=== PATIENT | male | born 1990 | race Caucasian/White ===

== ENCOUNTER 2016-11-24 23:48 | Emergency (ER) | payer BC ==
[~2016-11-24] VITALS: Ht 185.4 cm; Wt 97.5 kg
[2016-11-25 00:36] VITALS: BP 132/81
== END 2016-11-25 00:57 ==
LOC: ER 23:48
DX: F10.129 Alcohol abuse with intoxication, unspecified (principal)

== ENCOUNTER 2025-01-27 18:53 | Emergency (ER) | payer BC, MEDICAID ==
[~2025-01-27] VITALS: Ht 188 cm; Wt 100.0 kg
[2025-01-27 19:27] LABS: Hematocrit 48.2 % (41.0-53.0); Hemoglobin 17.3 g/dL (13.5-17.5); Mean Corpuscular Hemoglobin 35.1 pg (28.0-32.0); Mean Corpuscular Volume 98.0 fL (80.0-100.0); Nucleated Red Blood Cells % 0.1 %
[2025-01-27 19:43] LABS: Alkaline Phosphatase 76 U/L (46-116); Anion Gap 14 (5-15); BUN/Creatinine Ratio 6.8 (10.0-20.0); Calcium 9.4 mg/dL (8.7-10.4); Carbon Dioxide 23 mmol/L (20-31); Chloride 104 mmol/L (98-107); Glucose 95 mg/dL (74-106); Potassium 3.5 mmol/L (3.5-5.1); Sodium 141 mmol/L (136-145); Total Protein 7.8 g/dL (5.7-8.2)
[2025-01-27 19:44] LABS: Alanine Aminotransferase 60 U/L (7-40); Albumin 5.3 g/dL (3.2-4.8); Bilirubin, Total 0.4 mg/dL (0.2-1.0); Blood Urea Nitrogen 6 mg/dL (9-23); Lipase 81 U/L (12-53)
--- NOTE | 2025-01-27 19:56 | ED.PDOC ---
History of Present Illness HPI Comments 34-year-old male who presents to the emergency department with 3 days of left lower quadrant pain. He reports 3 years ago he was diagnosed with an internal hernia, told that he would need surgical repair. Patient does not have a PCP at this time, has not followed up with the surgeon. He states the pain is in the left upper quadrant, worse with food, associated with nausea and vomiting. He states he has difficulty having a bowel movement, it is not passing gas. Denies any significant past medical history. No blood in the vomit or stool. REVIEW OF SYSTEMS: General: No fever, no chills, or fatigue HEENT: No sore throat, no earache, no congestion, no neck pain. Cardiac: No chest pain. No palpitations. Lungs: No shortness of breath, no cough. GI: Positive nausea, positive vomiting, no diarrhea, positive constipation, positive abdominal pain : No dysuria, frequency, or urgency. No hematuria. Musculoskeletal: No joint pain , no joint swelling, no extremity edema. Skin: No rash, no itching. Neuro: No headache, no dizziness, no weakness PHYSICAL EXAM: General: Awake, alert and oriented. No acute distress. Skin: Skin in warm, dry and intact without rashes or lesions. HEENT: The head is normocephalic and atraumatic. Conjunctivae are clear without exudates or hemorrhage. Sclera is non-icteric. Neck: Normal range of motion. No JVD. Cardiac: Regular rate Respiratory: No signs of respiratory distress. No Stridor. Abdominal: Positive left upper quadrant tenderness. Diminished soft, no guarding rigidity or rebound Extremities: Upper and lower extremities are atraumatic in appearance without deformity. Neurological: The patient is awake, alert and oriented to person, place, and time with normal speech. Speech is clear. There is no facial asymmetry. Normal gait. Psychiatric: Appropriate mood and affect. Good judgement and insight. Chief Complaint: Abdominal Pain Time Seen by MD: 18:55 Primary Care Provider: DENIES Allergies: Coded Allergies: NO KNOWN ALLERGIES (Unverified , 10/25/09) Home Meds Active Scripts Acetaminophen (Acetaminophen Er) 650 Mg Tab, 650 MG PO TIDPRN PRN for 5 Days, #15 TAB Prov:JUANITA EATON MD 01/27/25 Ondansetron Odt 4MG Tab (ZOFRAN PO) 4 Mg Tb, 4 MG PO TIDPRN PRN for 3 Days, #9 TAB ODT TAB-DISSOLVE IN MOUTH, THEN SWALLOW Prov:JUANITA EATON MD 01/27/25 Famotidine (Pepcid AC) 20 Mg Tab, 20 MG PO TIDPRN PRN for 3 Days, #9 TAB Prov:JUANITA EATON MD 01/27/25 Mode of Arrival: Ambulatory Past Medical History PAST MEDICAL HISTORY: Denies Surgical History: Denies all surgeries Family History Family History: Unknown Social History Smoker: Non-Smoker Alcohol: Heavy Drugs: Denies Drug Use Lives In: Home Was a procedure done? Was a procedure done?: No Differential Dx Considerations may include: Differential diagnoses considered include: Abdominal aortic aneurysm, [place], esophageal rupture, intestinal obstruction, mesenteric ischemia, perforated viscus or solid organ rupture, CHF with hepatomegaly, pneumonia, abscess, appendicitis, biliary disease, diverticulitis, gastritis, gastroenteritis, hepatitis, hernia, inflammatory bowel disease, pancreatitis, peptic ulcer disease, urinary tract infection, ureteral colic, constipation, GERD, irritable syndrome, abdominal wall pain, nonspecific abdominal pain, herpes zoster, nephrolithiasis. X-Ray, Labs, Meds, VS Vital Signs Date Time Temp Pulse Resp B/P (MAP) Pulse Ox O2 Delivery O2 Flow Rate FiO2 01/27/25 21:55 98.0 78 20 150/98 (115) 99 98.0 01/27/25 20:40 97 20 146/94 01/27/25 20:10 97 20 146/94 01/27/25 20:02 Room Air* 0 21 01/27/25 20:02 98.0 97 20 146/94 (111) 96 98.0 01/27/25 18:54 98.5 118 18 163/114 95 98.5 Lab Test 01/27/25 19:51 01/27/25 19:19 Range/Units Urine Color Light-yellow Yellow Urine Clarity Clear Clear Urine pH 7.5 5.0-9.0 Urine Specific [place] 1.040 H 1.001-1.035 Urine Protein Negative Negative Urine Ketones Negative Negative Urine Blood Negative Negative /uL Urine Nitrite Negative Negative Urine Bilirubin Negative Negative Urine Urobilinogen Normal Negative mg/dL Urine Leukocyte Esterase Negative Negative /uL Urine RBC <1 0 - 3 /hpf Urine Microscopic WBC < 1 0-3 /HPF Urine Squamous Epithelial Cells None seen <5 /hpf Urine Bacteria None seen None Seen /hpf Urine Glucose Normal Normal mg/dL White Blood Count 7.0 4.4-10.8 10^3/uL Red Blood Count 4.92 4.5-5.90 10^6/uL Hemoglobin 17.3 13.5-17.5 g/dL Hematocrit 48.2 41.0-53.0 % Mean Corpuscular Volume 98.0 80.0-100.0 fL Mean Corpuscular Hemoglobin 35.1 H 28.0-32.0 pg Mean Corpuscular Hemoglobin Concent 35.9 32.0-36.0 g/dL Red Cell Distribution Width 13.8 11.8-14.3 % Platelet Count 320 140-450 10^3/uL Mean Platelet Volume 7.4 6.9-10.8 fL Neutrophils (%) (Auto) 55.7 37.0-80.0 % Lymphocytes (%) (Auto) 31.4 10.0-50.0 % Monocytes (%) (Auto) 7.2 0.0-12.0 % Eosinophils (%) (Auto) 5.0 0.0-7.0 % Basophils (%) (Auto) 0.7 0.0-2.0 % Neutrophils # (Auto) 3.9 1.6-8.6 10 ^3/uL Lymphocytes # (Auto) 2.2 0.4-5.4 10 ^3/uL Monocytes # (Auto) 0.5 0-1.3 10 ^3/uL Eosinophils # (Auto) 0.3 0-0.8 10 ^3/uL Basophils # (Auto) 0 0-0.2 10 ^3/uL Nucleated Red Blood Cells 0.1 % Sodium Level 141 136-145 mmol/L Potassium Level 3.5 3.5-5.1 mmol/L Chloride Level 104 98-107 mmol/L Carbon Dioxide Level 23 20-31 mmol/L Anion Gap 14 5-15 Blood Urea Nitrogen 6 L 9-23 mg/dL Creatinine 0.88 0.700-1.30 mg/dL Glomerular Filtration Rate Calc 117 >90 mL/min BUN/Creatinine Ratio 6.8 L 10.0-20.0 Serum Glucose 95 74-106 mg/dL Calcium Level 9.4 8.7-10.4 mg/dL Total Bilirubin 0.4 0.2-1.0 mg/dL Aspartate Amino Transferase (AST) 35 13-40 U/L Alanine Aminotransferase (ALT) 60 H 7-40 U/L Alkaline Phosphatase 76 46-116 U/L Troponin I High Sensitivity < 3 L </=54 ng/L Total Protein 7.8 5.7-8.2 g/dL Albumin 5.3 H 3.2-4.8 g/dL Lipase 81 H 12-53 U/L [place] [address] Ph: [phone] DIAGNOSTIC IMAGING Diagnostic Imaging Report : [id number] Signed PATIENT: LAURENT PACHECO ACCT: [id number] UNIT: [id number] : 1990 LOC: ER ROOM / BED: / AGE / SEX: 34 / M ADM STATUS: REG ER SERVICE 02 ORDERING PHYSICIAN: JUANITA EATON MD PROCEDURE(s): ABPLIV - CT AB PEL WITH IV CON ONLY REASON: LUQ abdominal pain ORDER NUMBER(s): [id number], ACCESSION NUMBER(s): [id number] Exam: CT CT AB PEL WITH IV CON ONLY History: LUQ abdominal pain Comparison Study: None TECHNIQUE: A digital supplier quality engineer image was obtained. During the uneventful, intravenous administration of contrast material, multislice data acquisition was obtained through the abdomen and pelvis. The data set was subsequently reconstructed into multiplanar reformats. RADIATION DOSE: CTDI vol 18.37 mGy. DLP 1131.84 mGy.cm Findings: Liver: Unremarkable. Spleen: Unremarkable. Pancreas: Unremarkable. Gallbladder: Unremarkable. Adrenals: Unremarkable Kidneys: Unremarkable. Pelvic Viscera: Unremarkable. Vasculature: Unremarkable. Retroperitoneum: Shotty retroperitoneal nodes. No ascites. Bowel: No bowel obstruction. The appendix is normal. Submucosal fat deposition is present within the terminal ileum which may reflect chronic inflammation. Musculoskeletal: Unremarkable. Soft tissues: Large fat containing left inguinal hernia. Lungs: The lung bases are clear. Impression: 1. No acute abdominopelvic abnormality identified. 2. Large fat containing left inguinal hernia. 3. Additional incidental findings as detailed. ATED BY: BRISSA BRANNON MD DICTATED DATE/TIME: 01/27/252057 SIGNED BY: BRISSA BRANNON MD SIGNED DATE/TIME: 01/27/252057 CC: Time of 1ST Reevaluation: 19:54 Reevaluation 1ST: Unchanged Patient Education/Counseling: Need For Follow Up Family Education/Counseling: No Family Present SEPSIS Sepsis Screen Date sepsis recognized/suspect: Jan 27, 2025 Time Sepsis recognized/suspect: 1854 Recent Procedure: No On Antibiotic Therapy: No Respiratory Rate >20: No Heart Rate >90: Yes Temp<36 C (96.8 F) or >38.3 C: No SBP <90 or MAP <65 mmHG: No New Acute Mental Status Change: No Is the patient on CPAP, BIPAP,: No Physician Orders Ct Ab Pel With Iv Con Only (01/27/25 19:03) Vital Signs Date Time Temp Pulse Resp B/P (MAP) Pulse Ox O2 Delivery O2 Flow Rate FiO2 01/27/25 21:55 98.0 78 20 150/98 (115) 99 98.0 01/27/25 20:40 97 20 146/94 01/27/25 20:10 97 20 146/94 01/27/25 20:02 Room Air* 0 21 01/27/25 20:02 98.0 97 20 146/94 (111) 96 98.0 01/27/25 18:54 98.5 118 18 163/114 95 98.5 Laboratory Tests Test 01/27/25 19:19 White Blood Count 7.0 10^3/uL (4.4-10.8) Departure 1 Departure Time of Disposition: 21:17 Impression: Primary Impression: Abdominal pain Additional Impressions: Left inguinal hernia Elevated AST (SGOT) Disposition: 01 HOME / SELF CARE / HOMELESS Condition: Stable Additional Instructions: ED DISCHARGE INSTRUCTIONS Instructions: Please read all instructions provided in this packet carefully. Although you have been discharged from the Emergency Department, this does not mean that you have a "clean bill of health". No definitive diagnosis for your symptoms has been made today. It is possible that you are in the process of developing a serious illness. This is why you must return to the ED without fail if any new or worsening symptoms (especially if your symptoms include chest pain, trouble breathing, abdominal pain, fever, headache, confusion, trouble seeing, or trouble walking) It is also very important that you see a primary care provider (PCP) within the next 3-5 days to follow up. If you are unable to get an appointment, return to the ED for re-evaluation. It is very important that you follow up with your primary care physician (PCP). You can call your insurance company or check your insurance card to find out who your PCP is. Or call [phone] to schedule an appointment with a new primary care provider. WHY YOU NEED A PCP: Establishing and regularly seeing a PCP and undergoing routine screenings are vital for maintaining good health. Your PCP acts as your main healthcare partner, helping you stay healthy, manage chronic conditions, and detect potential problems early. Routine screenings, like mammograms or colonoscopies, can catch diseases like cancer early when treatment is often more effective. A screening test is like a quick check-up your doctor does to see if there are any problems starting in your body, even when you feel okay, so they can find them early when they're easier to fix. Why Establish a Relationship with a Primary Care Physician (PCP)? Preventive Care: Your PCP focuses on preventing illness through regular checkups, vaccinations, and health advice tailored to your needs. Chronic Disease Management: If you have a chronic condition, like diabetes or high blood pressure, your PCP can help you manage it effectively through monitoring, medication management, and lifestyle recommendations. Early Detection: Regular visits allow your PCP to track your health over time, identify subtle changes, and order necessary screenings or tests to catch potential problems early. Trusted Resource: Your PCP gets to know you, your medical history, and your concerns, making them a trusted resource for all your health-related questions. Referrals: If you need specialized care, your PCP will refer you to the appropriate specialists and help coordinate your care. Continuity of Care: Your PCP ensures that your healthcare is coordinated, especially after hospital stays or visits to other specialists. Why are Routine Screenings Important? Early Detection: Many serious illnesses like cancer, diabetes and heart disease, can be treated more successfully when detected early. Screenings like lab tests, blood pressure checks, mammograms, colonoscopies, and Pap smears are designed to catch these diseases early. Preventing Disease: Some screenings can actually help prevent diseases from developing. Peace of Mind: Knowing that you are up-to-date on your screenings can provide peace of mind and reduce anxiety about potential health problems. Abdominal Pain: Care Instructions Overview Abdominal pain has many possible causes. Some aren't serious and get better on their own in a few days. Others need more testing and treatment. If your pain continues or gets worse, you need to be rechecked and may need more tests to find out what is wrong. You may need surgery to correct the problem. Don't ignore new symptoms, such as fever, nausea and vomiting, urination problems, pain that gets worse, and dizziness. These may be signs of a more serious problem. If you are not getting better, you may need more tests or treatment. The doctor has checked you carefully, but problems can develop later. If you notice any problems or new symptoms, get medical treatment right away. Follow-up care is a nowak part of your treatment and safety. Be sure to make and go to all appointments, and call your doctor if you are having problems. It's also a good idea to know your test results and keep a list of the medicines you take. How can you care for yourself at home? Rest until you feel better. To prevent dehydration, drink plenty of fluids. Choose water and other clear liquids until you feel better. If you have kidney, heart, or liver disease and have to limit fluids, talk with your doctor before you increase the amount of fluids you drink. When you feel like eating, start with small amounts. Do not have alcohol, caffeine, or spicy, hot, or high-fat foods for a day or two. Avoid anti-inflammatory medicines such as aspirin, ibuprofen (Advil, Motrin), and naproxen (Aleve). These can cause stomach upset. Talk to your doctor if you take daily aspirin for another health problem. When should you call for help? Call 911 anytime you think you may need emergency care. For example, call if: You passed out (lost consciousness). You pass maroon or very bloody stools. You vomit blood or what looks like coffee grounds. You have severe belly pain. Call your doctor now or seek immediate medical care if: Your pain gets worse, especially if it becomes focused in one area of your belly. You have a new or higher fever. Your stools are black and look like tar, or they have streaks of blood. You have unexpected vaginal bleeding. You have symptoms of a urinary tract infection. These may include: Pain when you urinate. Urinating more often than usual. Blood in your urine. You are dizzy or lightheaded, or you feel like you may faint. Watch closely for changes in your health, and be sure to contact your doctor if: You are not getting better as expected. Credits for Abdominal Pain: Care Instructions Current as of: April 17, 2023 Author: [email or web address] [employer], [employer] Staff Clinical Review Board All [employer] education is reviewed by a team that includes physicians, nurses, advanced practitioners, registered dieticians, and other healthcare professionals. e-Prescriptions Acetaminophen (Acetaminophen Er) 650 Mg Tab 650 MG PO TIDPRN PRN for 5 Days, #15 TAB Prov: JUANITA EATON MD 01/27/25 Ondansetron Odt 4MG Tab (ZOFRAN PO) 4 Mg Tb 4 MG PO TIDPRN PRN for 3 Days, #9 TAB ODT TAB-DISSOLVE IN MOUTH, THEN SWALLOW Prov: JUANITA EATON MD 01/27/25 Famotidine (Pepcid AC) 20 Mg Tab 20 MG PO TIDPRN PRN for 3 Days, #9 TAB Prov: JUANITA EATON MD 01/27/25 Comments MDM: 34-year-old male presented with abdominal pain. No peritoneal signs on abdominal exam. No evidence of acute abdomen at this time. patient is well appearing. Labs show no leukocytosis. Mild elevation of lipase and AST noted. Patient is afebrile. Patient is not hypotensive. Low suspicion for acute hepatobiliary disease (including acute cholecystitis, acute pancreatitis, PUD (including perforation), acute infectious process (pneumonia, hepatitis, pyelonephritis), acute appendicitis, vascular catastrophe, bowel obstructions, viscous perforation. Presentation not consistent with other acute, emergent causes of abdominal pain at this time. I reviewed the following notes from the pt's past medical encounters: N/A The following tests were ordered, and results were reviewed by me: (See diagnostic results section) The following test were independently interpreted by me: N/A Additional information was gathered from interviewing the following independent historians: N/A I reviewed and agreed with the following test results read by other providers: N/A I discussed treatments and results with patient Decision regarding hospitalization or escalation of hospital level of care: Risks and benefits of admission for further treatment of patient's condition was considered however due to patient's stable condition patient will be discharged to follow up closely or return to care for worsening of condition or inability to follow up. Critical Care Note Critical Care Time?: No Stability Stability form required: No JUANITA EATON MD Jan 27, 2025 19:56
[2025-01-27] MEDS: ONDANSETRON HCL 4 MG/2 ML VIAL IV ONE (20:09)
[2025-01-27] MEDS: MORPHINE SULFATE INJ 2 MG/ml SYRG IV ONE (20:10)
[2025-01-27] MEDS: IOHEXOL 300 MG/ML 100ML BOTTLE IJ ONE (20:40)
[2025-01-27 20:59] LABS: Urine Protein, UAD Negative (Negative)
--- NOTE | 2025-01-27 21:00 | DVH ---
Exam: CT CT AB PEL WITH IV CON ONLY History: LUQ abdominal pain Comparison Study: None TECHNIQUE: A digital application packaging specialist image was obtained. During the uneventful, intravenous administration of c ontrast material, multislice data acquisition was obtained through the abdomen and pelvis. The data s et was subsequently reconstructed into multiplanar reformats. RADIATION DOSE: CTDI vol 18.37 mGy. DLP 1131.84 mGy.cm Findings: Liver: Unremarkable. Spleen: Unremarkable. Pancreas: Unremarkable. Gallbladder: Unremarkable. Adrenals: Unremarkable Kidneys: Unremarkable. Pelvic Viscera: Unremarkable. Vasculature: Unremarkable. Retroperitoneum: Shotty retroperitoneal nodes. No ascites. Bowel: No bowel obstruction. The appendix is normal. Submucosal fat deposition is present within the terminal ileum which may reflect chronic inflammation. Musculoskeletal: Unremarkable. Soft tissues: Large fat containing left inguinal hernia. Lungs: The lung bases are clear. Impression: 1. No acute abdominopelvic abnormality identified. 2. Large fat containing left inguinal hernia. 3. Additional incidental findings as detailed.
[2025-01-27] MEDS ORDERED: FAMO-161 PO (21:19)
[2025-01-27] MEDS ORDERED: ZOFR4T PO (21:19)
[2025-01-27] MEDS ORDERED: ACET650T12 PO (21:19)
[2025-01-27 21:55] VITALS: BP 150/98; PULSE 78; RESP 20; TEMP 98; O2SAT 99
== END 2025-01-27 21:57 | disposition home or self-care (01) ==
LOC: ER 18:53
DX: K40.90 Unilateral inguinal hernia, without obstruction or gangrene, not specified as recurrent (principal); R10.12 Left upper quadrant pain; R74.01 Elevation of levels of liver transaminase levels; F10.10 Alcohol abuse, uncomplicated; Y90.9 Presence of alcohol in blood, level not specified
CPT/HCPCS: 36415; 74177; 80053; 81001; 83690; 84484; 85025; 96374; 96375; 99285; J2270; J2405; Q9967